=== PATIENT | male | born 1975 | race Caucasian/White ===

== ENCOUNTER 2024-03-11 09:39 | Emergency (ER) | payer SELFPAY ==
[2024-03-11] VITALS (8 sets, daily range): BP systolic 115–153; BP diastolic 85–113; PULSE 92–113; RESP 14; TEMP 36.7–38.5; O2SAT 96–98; BMI 32.3
--- NOTE | 2024-03-11 09:58 | XR_ITS ---
WS: [id number] Examination: XR chest 1V portable [id number] Reason for Exam: fever Date: 03/11/2024 Comparison: None. Findings: The heart is nonenlarged. The mediastinum is not widened. There is no effusion or congestion/edema There is no dense consolidation. XR/XR chest 1V portable [id number] Impression: No acute lung process is identified.
[2024-03-11 11:27] LABS: Basophils % 0.5 %; Eosinophils % 0.7 %; Lymphocytes # 1.4 10^3/uL (0.8-4.8); Lymphocytes % 25.1 %; Mean Corpuscular HGB Conc 33.3 g/dL (30-55); Mean Corpuscular Hemoglobin 28.3 pg (27-33); Mean Corpuscular Volume 85.2 fl (82-101); Mean Platelet Volume 9.4 fL (7.4-10.4); Monocytes # 0.7 10^3/uL (0.2-0.9); Monocytes % 11.8 %; Neutrophils # 3.42 10^3/uL (1.8-7.7); Neutrophils % 61.4 %; Nucleated Red Blood Cells % 0 %; Platelet Count 166 10^3/cmm (157-399); Red Cell Distribution Width 13.7 % (12.1-15.1); White Blood Count 5.58 10^3/uL (3.29-11.43)
[2024-03-11 11:28] LABS: Erythrocyte Sedimentation Rate 4 mm/hr (0-10)
[2024-03-11 11:47] LABS: Alanine Aminotransferase 109 U/L (0-41); Albumin Level 4.3 g/dL (3.5-5.2); Alkaline Phosphatase 60 U/L (40-130); Anion Gap 15.1 (5-19); Aspartate Amino Transferase 50 U/L (0-40); Blood Urea Nitrogen 10 mg/dL (6-20); Calcium 8.7 mg/dL (8.5-10.5); Carbon Dioxide 24 mmol/L (22-29); Chloride 104 mmol/L (98-107); Creatinine Clr Calc Pharmacy 116.5113; Globulin 3.2 g/dL (1.3-4.6); Glomerular Filtration Rate 102.3 mL/min (90-130); Glucose 122 mg/dL (65-115); Osmolality Calculated 288 mOsm/kg (285-295); Potassium 4.1 mmol/L (3.5-5.1); Sodium 139 mmol/L (136-145); Total Bilirubin 0.6 mg/dL (0.15-1.2); Total Protein 7.5 g/dL (6.6-8.7)
[2024-03-11 11:48] LABS: Lactic Sepsis W/Reflex 1.1 mmol/L (0.5-2.2)
--- NOTE | 2024-03-11 11:58 | ED_ITS ---
HPI - General Adult 2 General: Chief complaint: General Medical Stated complaint: Fever/headache (sent by ) Time Seen by Provider: 03/11/24 11:22 History of Present Illness: 48-year-old male presents to the emergen cy room with complaints of headache generally not feeling well. Is been going on for a couple of weeks. His headache consists of when he touches his scalp it is exquisitely tender does not lateralize its on both sides he has not had any rash no vesicles. He was concerned that he may have meningitis based on his Google search. Is also been having issues with pain and discomfort at the perineum although he says he does not have any at this time. When he initially showed up he did have a little bit of a low-grade fever which resolved later in the visit. He denies any shortness of breath or chest pain. He has some occasional abdominal discomfort and cramping has not had any vomiting or diarrhea. Patient does [id number] frequently. He does not recall getting any tick bites but he says it may have happened. Associated symptoms: Reports headache(s); Deny chest pain, dyspnea or rash Related Data Home Medications Medication Instructions Recorded Confirmed ibuprofen 200 mg tablet 800 mg PO Q6H PRN Pain 03/11/24 03/11/24 Previous Rx's Medication Instructions Recorded doxycycline hyclate 100 mg capsule 100 mg PO BID 10 days #20 caps 03/11/24 Allergies Allergy/AdvReac Type Severity Reaction Status Date / Time No Known Allergies Allergy Unverified 03/11/24 09:07 Review of Systems 2 Const: Denies: fever(s) or chills Card: Denies: chest pain Resp: Denies: dyspnea GI: Denies: abdominal pain : Denies: dysuria, urinary frequency or urinary urgency Musc: Denies: neck pain or back pain Skin/Breast: Denies: rash Neuro: Reports: headache(s) PFSH ED 2 PFSH: Social History Smoking and tobacco/nicotine status: unknown if used tobacco/nicotine Physical Exam 2 Const: COMMON NORMALS: no acute distress GENERAL APPEARANCE: cooperative and comfortable ORIENTATION/CONSCIOUSNESS: Yes awake, Yes oriented to person, Yes oriented to place and Yes oriented to time HENMT: COMMON NORMALS: normocephalic, atraumatic and hearing grossly normal bilaterally HEAD & SCALP: normocephalic and atraumatic Neck/C-Spine: COMMON NORMALS: full ROM, no lymphadenopathy, supple and no meningeal signs Resp: COMMON NORMALS: normal respiratory effort, No retractions, No use of accessory muscles and clear to auscultation bilaterally AUSCULTATION: clear to auscultation bilaterally Cardio: COMMON NORMALS: regular rate, regular rhythm and No murmurs present (Cardio) RATE: regular rate RHYTHM: regular rhythm GI: COMMON NORMALS: Soft to palpation and No hepatosplenomegaly present A USCULTATION: Yes normoactive bowel sounds PALPATION: Yes Soft to palpation, No Tenderness to palpation present (GI), No Guarding due to palpation present (GI) and Yes No hepatosplenomegaly present Extremity: COMMON NORMALS: normal to inspection, capillary refill normal, no clubbing, cyanosis or edema, no calf tenderness and no pedal edema Neuro: SENSORIUM/ORIENTATION: Yes oriented to person, Yes oriented to place and Yes oriented to time MENINGEAL SIGNS: Yes no meningeal signs OTHER: No focal neurologic deficits normal facial symmetry normal strength in all extremities normal sensation lower extremities no ataxia Skin: COMMON NORMALS: no rashes or lesions noted GENERAL SKIN EXAM: no rashes or lesions noted Course 2 Vital Signs: Vital signs: Vital Signs Temperature 98.1 F 03/11/24 13:58 Pulse Rate 101 H 03/11/24 15:07 Respiratory Rate 14 03/11/24 09:53 Blood Pressure 115/85 03/11/24 15:07 Pulse Oximetry 96 03/11/24 15:07 Oxygen Delivery Me thod Room Air 03/11/24 13:53 [facility] - General Adult Medical Decision Making White count normal sed rate is normal but his CRP is a little bit elevated his AST and ALT are elevated with no change in his alk phos or T. bili. His platelet count is normal. Did get a blood culture on him also get a tick panel. On exam he does not have any findings suggestive of meningeal signs. He has no focal neurologic deficits. I do not believe he had a stroke. Very suspicious of tickborne illness we did do workup on his gallbladder as well which was negative. Will start him on doxycycline and set him up to see neurology for his headaches as well as primary care physician return if he has further problems. Medical Records I reviewed the patient's medical records. Lab Data I reviewed the patient's lab results. 03/11/24 11:15 03/11/24 11:15 Radiology Impressions Chest X-Ray 03/11/24 09:58 Impression: No acute lung process is identified. Gallbladder Ultrasound 03/11/24 12:08 IMPRESSION: 1. Normal gallbladder. No stones or wall thickening. 2. Mild hepatomegaly. Abdomen/Pelvis CT 03/11/24 13:13 IMPRESSION: 1. No renal obstruction or hydronephrosis. No renal calcifications. 2. Normal appendix. 3. No acute diverticulitis. 4. No ascites or adenopathy. Laboratory Results WBC 5.58 10^3/uL (3.29-11.43) 03/11/24 11:15 RBC 5.40 10^6/uL (3.85-5.65) 03/11/24 11:15 Hgb 15.30 g/dL (11.27-16.99) 03/11/24 11:15 Hct 46.0 % (37-53) 03/11/24 11:15 MCV 85.2 fl (82-101) 03/11/24 11:15 MCH 28.3 pg (27-33) 03/11/24 11:15 MCHC 33.3 g/dL (30-55) 03/11/24 11:15 RDW 13.7 % (12.1-15.1) 03/11/24 11:15 Plt Count 166 10^3/cmm (157-399) 03/11/24 11:15 MPV 9.4 fL (7.4-10.4) 03/11/24 11:15 Neut % (Auto) 61.4 % 03/11/24 11:15 Lymph % (Auto) 25.1 % 03/11/24 11:15 [place] % (Auto) 11.8 % 03/11/24 11:15 Eos % (Auto) 0.7 % 03/11/24 11:15 Baso % (Auto) 0.5 % 03/11/24 11:15 Neut # (Auto) 3.42 10^3/uL (1.8-7.7) 03/11/24 11:15 Lymph # (Auto) 1.4 10^3/uL (0.8-4.8) 03/11/24 11:15 [place] # (Auto) 0.7 10^3/uL (0.2-0.9) 03/11/24 11:15 Eos # (Auto) 0.0 10^3/uL (0.0-0.8) 03/11/24 11:15 Baso # (Auto) 0.0 10^3/uL (0.0-0.1) 03/11/24 11:15 Nucleated RBC % (auto) 0 % 03/11/24 11:15 Nucleated RBCs # 0.0 /100WBC 03/11/24 11:15 ESR 4 mm/hr (0-10) 03/11/24 11:15 Sodium 139 mmol/L (136-145) 03/11/24 11:15 Potassium 4.1 mmol/L (3.5-5.1) 03/11/24 11:15 Chloride 104 mmol/L (98-107) 03/11/24 11:15 Carbon Dioxide 24 mmol/L (22-29) 03/11/24 11:15 Anion Gap 15.1 (5-19) 03/11/24 11:15 BUN 10 mg/dL (6-20) 03/11/24 11:15 Creatinine 0.8 mg/dL (0.7-1.2) 03/11/24 11:15 GFR Calculation 102.3 mL/min (90-130) 03/11/24 11:15 Glucose 122 mg/dL (65-115) H 03/11/24 11:15 Calculated Osmolality 288 mOsm/kg (285-295) 03/11/24 11:15 Lactic Acid 1.1 mmol/L (0.5-2.2) 03/11/24 11:15 Calcium 8.7 mg/dL (8.5-10.5) 03/11/24 11:15 Total Bilirubin 0.6 mg/dL (0.15-1.2) 03/11/24 11:15 AST 50 U/L (0-40) H 03/11/24 11:15 ALT 109 U/L (0-41) H 03/11/24 11:15 Alkaline Phosphatase 60 U/L (40-130) 03/11/24 11:15 C-Reactive Protein 31.0 mg/L (0.0-4.9) H 03/11/24 11:15 Total Protein 7.5 g/dL (6.6-8.7) 03/11/24 11:15 Albumin 4.3 g/dL (3.5-5.2) 03/11/24 11:15 Globulin 3.2 g/dL (1.3-4.6) 03/11/24 11:15 Urine Color Yellow (Yellow) 03/11/24 12:51 Urine Appearance Clear (CLEAR) 03/11/24 12:51 Urine pH 5.5 (5-7) 03/11/24 12:51 Ur Specific [place] 1.021 (1.005-1.030) 03/11/24 12:51 Urine Protein Negative (Negative) 03/11/24 12:51 Urine Glucose (UA) Negative (Normal) 03/11/24 12:51 Urine Ketones Negative (Negative) 03/11/24 12:51 Urine Blood Trace (Negative) A 03/11/24 12:51 Urine Nitrate Negative (Negative) 03/11/24 12:51 Urine Bilirubin Negative (Negative) 03/11/24 12:51 Urine Urobilinogen 1.0 mg/dL (Negative) 03/11/24 12:51 Ur Leukocyte Esterase Negative (Negative) 03/11/24 12:51 Urine RBC None /hpf (0-2) 03/11/24 12:51 Urine WBC 0-4 /hpf (0-5) H 03/11/24 12:51 Ur Squamous Epith Cells None /hpf (0-5) 03/11/24 12:51 Amorphous Sediment Not Reportable 03/11/24 12:51 Urine Bacteria None /hpf (NONE) 03/11/24 12:51 Hyaline Casts 0-4 /lpf H 03/11/24 12:51 Urine Mucus 2+ /hpf 03/11/24 12:51 Adenovirus (PCR) Not detected (NOT DETECT) 03/11/24 13:51 C. pneumoniae DNA (PCR) Not detected (NOT DETECT) 03/11/24 13:51 Coronavirus 229E (PCR) Not detected (NOT DETECT) 03/11/24 13:51 Hepatitis A IgM Ab Non-reactive (Nonreactive) 03/11/24 11:15 Hep Bs Antigen Non-reactive (Nonreactive) 03/11/24 11:15 Hep B Core IgM Ab Non-reactive (Nonreactive) 03/11/24 11:15 Hepatitis C Antibody Non-reactive (Nonreactive) 03/11/24 11:15 Human Metapneumovir PCR Not detected (NOT DETECT) 03/11/24 13:51 Influenza A (H1) PCR Not detected (NOT DETECT) 03/11/24 13:51 Influ A (H1/09) PCR Not detected (NOT DETECT) 03/11/24 13:51 Influenza A (H3) PCR Not detected (NOT DETECT) 03/11/24 13:51 Influenza Type A (PCR) Not detected (NOT DETECT) 03/11/24 13:51 Influenza Type B (PCR) Not detected (NOT DETECT) 03/11/24 13:51 M. pneumoniae (PCR) Not detected (NOT DETECT) 03/11/24 13:51 Parainfluenza 1 (PCR) Not detected (NOT DETECT) 03/11/24 13:51 Parainfluenza 2 (PCR) Not detected (NOT DETECT) 03/11/24 13:51 Parainfluenza 3 (PCR) Not detected (NOT DETECT) 03/11/24 13:51 Parainfluenza 4 (PCR) Not detected (NOT DETECT) 03/11/24 13:51 RSV Type A (PCR) Not detected (NOT DETECT) 03/11/24 13:51 RSV Type B (PCR) Not detected (NOT DETECT) 03/11/24 13:51 Entero/Rhino (PCR) Not detected (NOT DETECT) 03/11/24 13:51 SARS-CoV-2 (PCR) Not detected (NOT DETECT) 03/11/24 13:51 SARS-CoV-2 Ag (Rapid) negative (Negative) 03/11/24 11:38 All radiology interpretation(s) finalized by discharge Discharge Plan Discharge Patient Disposition: Home Clinical Impression: Fever, At high risk for tick borne illness Condition: Stable Prescriptions: New doxycycline hyclate 100 mg capsule 100 mg PO BID 10 Days Qty: 20 0RF No Action ibuprofen 200 mg Tablet 800 mg PO Q6H PRN (Reason: Pain) Discharge Orders: Discharge ED (Routine); Ordered 03/11/24 Ordered By: Dontrell Harmon Discharge Diet: Usual diet Discharge Activity: Resume usual activity Patient Instructions: Opioid Safety, Pain Management Activity Restrictions/Additional Instructions: Thank you for choosing [facility] for your healthcare needs today. It is very important that you follow up as instructed or that you return to the Emergency Department should you have concerns or if your condition changes or worsens in any way. You were seen in the emergency room with headache myalgias and generally not feeling well for a couple of weeks. Initially when you arrived you had a fever this resolved on its own. Laboratory chest showed a mild elevation in your liver functions but CT of your abdomen and gallbladder ultrasound did not show any sign of acute cholecystitis. We did screen you for tickborne illnesses. Recommend he start on doxycycline 100 p.o. twice daily until a tick panel was resulted. Will set you up to follow-up with the primary care doctor as well as consult with neurology. Your exam did not show signs of meningitis. Coding Level of Care Code ED Screen Making Supervisor for Conchis Amaral
[2024-03-11 12:01] LABS: SARS Covid-2 Antigen negative (Negative)
--- NOTE | 2024-03-11 12:08 | US_ITS ---
WS: [id number] RIGHT UPPER QUADRANT ULTRASOUND HISTORY: elevated transaminase COMPARISON: None available. Liver: 18.0 cm in length. Mild hepatomegaly. The entire liver is not very well visualized. No mass or bile duct dilatation. Portal Vein: Normal hepatopetal flow with monophasic waveform. Gallbladder: Normally distended gallbladder with no stones or wall thickening. CBD: 0.5 cm Pancreas: Obscured by bowel gas. Right kidney: 12.0 cm in length. Normal size and echogenicity. No hydronephrosis or mass. Aorta and IVC: Unremarkable abdominal aorta and IVC. No ascites. US/US gall bladder [id number] IMPRESSION: 1. Normal gallbladder. No stones or wall thickening. 2. Mild hepatomegaly.
[2024-03-11 12:58] LABS: Charge for UA Resulting for Rev
[2024-03-11 13:00] LABS: Bilirubin Urine Negative (Negative); Blood Urine Trace (Negative); Glucose Urine UA Negative (Normal); Ketones Urine Negative (Negative); Leukocyte Esterase Urine Negative (Negative); Nitrate Urine Negative (Negative); Protein Urine Negative (Negative); Specific Gravity, Urine 1.021 (1.005-1.030); Urine Appearance Clear (CLEAR); Urine Color Yellow (Yellow); pH Urine 5.5 (5-7)
[2024-03-11 13:11] LABS: Hepatitis A Antibody IgM Non-Reactive (Nonreactive); Hepatitis B Core IgM Non-Reactive (Nonreactive); Hepatitis B Surface Antigen Non-Reactive (Nonreactive); Hepatitis C Virus Antibody Non-Reactive (Nonreactive)
--- NOTE | 2024-03-11 13:13 | CT_ITS ---
WS: [id number] CT ABDOMEN AND PELVIS NONCONTRAST HISTORY: Abdominal pain, sharp LEFT lower quadrant pain. TECHNIQUE: Imaging performed through the abdomen and pelvis. Coronal and sagittal reformats are submi tted. All CT scans at [facility] use at least one of these dose optimization techniques: auto mated exposure control; mA and/or kV adjustment per patient size (includes targeted exams where dose is matched to clinical indication); or iterative reconstruction. DLP: 810.28 mGy.cm COMPARISON: None available. Lower thorax: Lung bases are clear. Visualized heart is normal. No hiatal hernia. Liver: Mild hepatomegaly and hepatic steatosis. Gallbladder: Normal gallbladder. No pericholecystic fluid or cholelithiasis. No gallbladder wall thic kening. Pancreas: Normal size and attenuation. Normal pancreatic duct. No pancreatitis or mass. Spleen: Normal. Adrenal glands: Normal. No mass. Right kidney: Mild perinephric stranding. No obstruction. Left kidney: Normal size kidney with no mass or hydronephrosis. Aorta: Normal abdominal aorta, no aneurysm or atherosclerosis. No free fluid, intraperitoneal air or significant lymphadenopathy. GI tract: Negative stomach. No small bowel obstruction. Normal appendix. No colitis. Abdominal wall: Small umbilical hernia contains fat only. Pelvis: No free fluid. No adenopathy. Negative bladder. Osseous structures: Unremarkable. CT/CT abdomen pelvis wo con [id number] IMPRESSION: 1. No renal obstruction or hydronephrosis. No renal calcifications. 2. Normal appendix. 3. No acute diverticulitis. 4. No ascites or adenopathy.
[2024-03-11 13:15] LABS: UA Manual Slide Review YES; UA Slide Review UA Slide Review Perf
[2024-03-11 13:17] LABS: Add Urine Culture? No; Hyaline Casts Urine 0-4 /lpf; Mucus Urine 2+ /hpf; WBC Urine 0-4 /hpf (0-5)
[2024-03-11 15:52] LABS: Adenovirus Not Detected (NOT DETECT); Chlamydia Pneumoniae Not Detected (NOT DETECT); Coronavirus 229E,HKU1,NL63,OC4 Not Detected (NOT DETECT); Human Metapneumovirus Not Detected (NOT DETECT); Human Rhinovirus/Enterovirus Not Detected (NOT DETECT); Influenza A Not Detected (NOT DETECT); Influenza A H1 Not Detected (NOT DETECT); Influenza A H1-2009 Not Detected (NOT DETECT); Influenza A H3 Not Detected (NOT DETECT); Influenza B Not Detected (NOT DETECT); Mycoplasma Pneumoniae Not Detected (NOT DETECT); Parainfluenza Virus Type 1 Not Detected (NOT DETECT); Parainfluenza Virus Type 2 Not Detected (NOT DETECT); Parainfluenza Virus Type 3 Not Detected (NOT DETECT); Parainfluenza Virus Type 4 Not Detected (NOT DETECT); Respiratory Syncytial Virus A Not Detected (NOT DETECT); Respiratory Syncytial Virus B Not Detected (NOT DETECT); SARS-COV-2 Not Detected (NOT DETECT)
--- NOTE | 2024-03-11 23:55 | DCPLANNER ---
Message sent to Neurology for follow up on headaches-
[2024-03-13 04:24] LABS: Lyme AB Screen <0.90 index
== END 2024-03-11 15:11 | disposition home or self-care (01) ==
PROVIDERS: Emergency Medicine; Emergency Provider Family Medicine
DX: R50.9 Fever, unspecified (principal); Z11.52 Encounter for screening for COVID-19
CPT/HCPCS: 36415; 71045; 74176; 76705; 80053; 80074; 81003; 81015; 83605; 85025; 85651; 86140; 86618; 86666; 86757; 87040; 87426; 87486; 87581; 87633; 99284